=== PATIENT | female | born 1990 | race Caucasian/White ===

== ENCOUNTER → 2020-11-08 09:19 | Outpatient (CLI) | payer OTHER, SELFPAY ==
--- NOTE | 2020-11-08 09:26 | RAD_ITS ---
STUDY: X-RAY - LUMBAR SPINE REASON FOR EXAM: Female, 30 years old. Back pain. TECHNIQUE: 2 view(s) of the lumbar spine were obtained. COMPARISON: None FINDINGS: Normal lumbar lordosis. There is no substantial scoliosis. There is a normal alignment of the vertebrae. Normal vertebral bodies and endplates. Minimal intervertebral disc space narrowing at T11-T12 and T12-L1 with small osteophytes. The soft tissue structures are unremarkable. RAD/Lumbar Spine 2 or 3 Views IMPRESSION: Mild lower thoracic and upper lumbar spondylosis. Electronically Signed: Sravan Corcoran MD at 12:50 EDT , Service support ,
--- NOTE | 2020-11-08 09:26 | RAD_ITS ---
STUDY: X-RAY - THORACIC SPINE REASON FOR EXAM: Female, 30 years old. Back pain. TECHNIQUE: 2 view(s) of the thoracic spine were obtained. COMPARISON: None. FINDINGS: Normal kyphosis of the thoracic spine. There is no substantial scoliosis. Normal thoracic vertebrae and endplates. Disc degeneration in the lower thoracic and upper lumbar spine with small osteophytes. The soft tissue structures are unremarkable. RAD/Thoracic Spine 2 Views IMPRESSION: Minimal lower thoracic and upper lumbar spondylosis. Electronically Signed: Sravan Corcoran MD at 12:49 EDT , Service support ,
--- NOTE | 2020-11-08 09:40 | RAD_ITS ---
STUDY: X-RAY - SACRUM/COCCYX REASON FOR EXAM: Female, 30 years old. Back pain. TECHNIQUE: 3 view(s) of the sacrum and coccyx were obtained. COMPARISON: None. FINDINGS: Normal bilateral sacroiliac joints. Normal visualized sacral ala and fused sacral bodies. Normal sacrococcygeal junction with a normal angulation. Normal coccygeal segments. The presacral soft tissue structures are unremarkable. RAD/Sacrum-Coccyx min 2 Views IMPRESSION: No abnormality of the visualized osseous structures. Electronically Signed: Sravan Corcoran MD at 12:50 EDT , Service support ,
== END ==
LOC: RAD 09:24
PROVIDERS: Referring Provider Anesthesiology Pain Medicine; Visit Provider Anesthesiology Pain Medicine
DX: M54.9 Dorsalgia, unspecified (principal)
CPT/HCPCS: 72070; 72100; 72220

== ENCOUNTER → 2022-02-06 | Outpatient (CLI) | payer OTHER, SELFPAY ==
[2022-02-06 17:25] LABS: Amphetamine Urine VISTA NEGATIVE (<1000 ng/mL); Barbiturate Urine VISTA NEGATIVE (< 200 ng/mL); Benzodiazepine Urine VISTA POSITIVE (< 200 ng/mL); Cocaine Urine VISTA NEGATIVE (< 300 ng/mL); Ecstacy Urine VISTA NEGATIVE (< 500 ng/mL); Methadone Urine VISTA NEGATIVE (< 300 ng/mL); PCP Urine VISTA NEGATIVE (< 25 ng/mL); THC Urine VISTA NEGATIVE (< 50 ng/mL); Vista UDS pH Range 5
[2022-02-09 12:08] LABS: Chlamydia By Nucleic Acid AMP Negative (Negative)
[2022-02-09 15:12] LABS: Gonococcus By Nucleic Acid AMP Negative (Negative)
[2022-02-15 15:15] LABS: HPV APTIMA, High Risk Negative (Negative)
== END | disposition home or self-care (01) ==
PROVIDERS: Visit Provider Obstetrics & Gynecology
DX: O09.90 Supervision of high risk pregnancy, unspecified, unspecified trimester (principal)
CPT/HCPCS: 80307; 87086; 87088; 87491; 87591; 87624; 88175; G0145

== ENCOUNTER → 2022-02-08 | Outpatient (CLI) | payer OTHER, SELFPAY ==
[2022-02-08 11:50] LABS: Absolute Lymphocyte Count 2.69 X10^3/uL (0.83-4.51); Absolute Neutrophil Count 9.1 X10^3/uL (2.0-7.7); Basophil# 0.03 X10^3/uL; Basophil% 0.2 % (0-1); Eosinophil# 0.12 X10^3/uL; Eosinophils% 0.9 % (0-5); Hematocrit 36.5 % (37-47); Hemoglobin 12.4 g/dL (12.0-15.0); Lymphocyte # 2.69 X10^3/ul (0.83-4.51); Mean Corpuscular Hgb 28.7 pg (27.0-32.0); Mean Corpuscular Volume 84.5 fL (81-99); Mean Platelet Vol. 9.1 fl (6.2-12.0); Monocyte# 0.78 X10^3/uL; Monocyte% 6.1 % (0-10); NRBC Flagged by Analyzer 0 % (0-5); Neutrophil # 9.13 X10^3/uL (2.7-7.7); Neutrophil % 71.5 % (47-70); Platelet Count 334 K/mm3 (150-450); RBC Distribution Width CV 12.1 % (11.6-14.6); RBC Distribution Width SD 36.8 fl (35.1-43.9); Red Blood Count 4.32 M/mm3 (4.2-5.4); White Blood Count 12.8 K/mm3 (4.4-11.0)
[2022-02-08 11:55] LABS: NATERA MAILED SPECIMEN
[2022-02-08 12:18] LABS: Glucose Challenge Gest 1H 50g 75 mg/dL (70-140)
[2022-02-08 12:57] LABS: HIV - WCH Non-Reactive (Nonreactive); Hepatitis B Surface Antigen Non-Reactive (Nonreactive); Hepatitis C Antibody Non-Reactive (Nonreactive); Rubella IgG Reactive (Nonreactive); Syphilis Antibodies Non-reactive
[2022-02-15 14:29] LABS: Vitamin D 1,25-Dihydroxy 67.6 pg/mL (24.8-81.5)
== END | disposition home or self-care (01) ==
LOC: LAB 10:52
PROVIDERS: PCP Family Medicine; Visit Provider Obstetrics & Gynecology
DX: Z34.81 Encounter for supervision of other normal pregnancy, first trimester (principal)
CPT/HCPCS: 36415; 82652; 82950; 85025; 86703; 86762; 86780; 86803; 86850; 86900; 86901; 87340

== ENCOUNTER → 2022-05-15 | Outpatient (CLI) | payer OTHER, SELFPAY ==
--- NOTE | 2022-05-15 11:29 | US_ITS ---
STUDY: SECOND AND THIRD TRIMESTER OBSTETRICAL ULTRASOUND REASON FOR EXAM: Female, 31 years old Anatomy scan LMP: 11/29/2021. TECHNIQUE: Transabdominal and Transvaginal TECHNICAL QUALITY: Adequate. PRIOR ULTRASOUND: None. FINDINGS: There is a single intrauterine fetus. The fetus is in a cephalic presentation. There is demonstrated cardiac activity with a heart rate of 162 bpm. There is a normal amniotic fluid volume. The largest amniotic fluid pocket measures 4.3 cm. The amniotic fluid index (GERMAN) is within normal limits. The placenta is posterior in location and is not low lying. There are Grade 0 placental changes. The cervix measures 3.6 cm in length. The bilateral adnexal regions are normal. BIOMETRY: BPD: 5.4 cm: 22 weeks, 3 days HC: 21.22 cm: 23 weeks, 2 days AC: 19.67 cm: 24 weeks, 2 days FL: 4.15 cm: 23 weeks, 3 days CI: 71% FL/BPD: 77% FL/HC: FL/AC: 21% HC/AC: 1.08 age by current US: 23 weeks, 1 days. MYRON by current US: 09/10/2022. Estimated weight: 632 grams, +/- 95 grams, 39 %. Age by LMP: 23 weeks, 6 days. MYRON by LMP: 09/05/2022. ANATOMY: Gender: Male Cranium: Normal lateral ventricles. Normal choroid plexus. Normal cerebellum. Normal cisterna magna. Normal face, nose and lips. Chest: Normal 4-chamber heart. Abdomen/Pelvis: Normal diaphragm. Normal stomach. Normal abdominal wall. Normal cord insertion. Normal 3 vessel cord. Normal kidneys. Normal bladder. Spine: Normal cervical spine. Normal thoracic spine. Normal lumbar spine. Normal sacrum. Extremities: Normal bilateral upper extremities. Normal bilateral lower extremities. US/OB Anatomy Scan IMPRESSION: Single live uterine gestation with a mean gestational age of 23 weeks and 1 day. Electronically Signed: Sanjay Delgadillo MD at 15:08 EST ,
== END | disposition home or self-care (01) ==
LOC: OPUS 11:26
PROVIDERS: PCP Family Medicine; Referring Provider Obstetrics & Gynecology; Visit Provider Obstetrics & Gynecology
DX: O09.90 Supervision of high risk pregnancy, unspecified, unspecified trimester (principal)
CPT/HCPCS: 76805; 76817

== ENCOUNTER → 2022-07-22 | Outpatient (CLI) | payer OTHER, SELFPAY ==
[2022-07-22 13:35] LABS: Glucose Challenge Gest 1H 50g 154 mg/dL (70-140)
== END | disposition home or self-care (01) ==
LOC: LAB 12:17
PROVIDERS: PCP Family Medicine; Referring Provider Obstetrics & Gynecology; Visit Provider Obstetrics & Gynecology
DX: Z34.92 Encounter for supervision of normal pregnancy, unspecified, second trimester (principal); Z3A.23 23 weeks gestation of pregnancy
CPT/HCPCS: 36415; 82950

== ENCOUNTER 2022-08-19 13:50 | Outpatient (CLI) | payer OTHER, SELFPAY ==
[2022-08-19] VITALS (8 sets, daily range): PULSE 86–104; O2SAT 96–97; BMI 37.3
[2022-08-19 14:54] LABS: Absolute Lymphocyte Count 2.76 X10^3/uL (0.83-4.51); Absolute Neutrophil Count 9.6 X10^3/uL (2.0-7.7); Basophil# 0.04 X10^3/uL; Basophil% 0.3 % (0-1); Eosinophil# 0.09 X10^3/uL; Eosinophils% 0.7 % (0-5); Hematocrit 36.5 % (37-47); Hemoglobin 11.8 g/dL (12.0-15.0); Lymphocyte # 2.76 X10^3/ul (0.83-4.51); Lymphocyte % 20.5 % (19-41); Mean Corp Hgb Conc 32.3 g/dL (32-36); Mean Corpuscular Hgb 27.5 pg (27.0-32.0); Mean Corpuscular Volume 85.1 fL (81-99); Mean Platelet Vol. 10.5 fl (6.2-12.0); Monocyte# 0.84 X10^3/uL; Monocyte% 6.3 % (0-10); NRBC Flagged by Analyzer 0 % (0-5); Neutrophil # 9.58 X10^3/uL (2.7-7.7); Neutrophil % 71.2 % (47-70); Platelet Count 321 K/mm3 (150-450); RBC Distribution Width CV 12.9 % (11.6-14.6); RBC Distribution Width SD 39.5 fl (35.1-43.9); Red Blood Count 4.29 M/mm3 (4.2-5.4); White Blood Count 13.4 K/mm3 (4.4-11.0)
[2022-08-19 15:03] LABS: Fibrinogen 666 mg/dl (203-444)
--- NOTE | 2022-08-19 15:12 | US_ITS ---
INDICATION: FHR deceleration EXAMINATION: Ultrasound US Biophysical Profile W/O Nonst TECHNIQUE: Transabdominal pelvic ultrasound was performed. COMPARISON: None. LMP: Unknown. Beta-hCG: Unknown. Provided EGA: None. FINDINGS: INTRAUTERINE GESTATION(s): Single. HEART MOTION is 135 bpm. AMNIOTIC FLUID INDEX (GERMAN): 12.18 BIOPHYSICAL PROFILE (BPP): 11/12 -- Breathin at of 2 -- Movement: 2/2. -- Tone: 2/2. --GERMAN: 2/2. PRESENTATION: Cephalic PLACENTA: Posterior There is no placenta previa or abruption. Placenta grade 2 CERVIX: The cervix is closed. MATERNAL OVARIES: No adnexal masses. FREE FLUID: None. US/Biophysical Prof W/O Non Stres IMPRESSION: Single live intrauterine gestation. Biophysical profile score 6 out of 8. Cephalic presentation. Electronically Signed: Steve Dela Cruz MD, [place] at 17:47 EDT ,
[2022-08-19 15:26] LABS: Hemoglobin A1c 5.6 % (3.8-5.6)
[2022-08-19 16:52] LABS: Amphetamine Urine VISTA NEGATIVE (<1000 ng/mL); Barbiturate Urine VISTA NEGATIVE (< 200 ng/mL); Benzodiazepine Urine VISTA POSITIVE (< 200 ng/mL); Cocaine Urine VISTA NEGATIVE (< 300 ng/mL); Ecstacy Urine VISTA NEGATIVE (< 500 ng/mL); Methadone Urine VISTA NEGATIVE (< 300 ng/mL); PCP Urine VISTA NEGATIVE (< 25 ng/mL); THC Urine VISTA NEGATIVE (< 50 ng/mL); Vista UDS pH Range 6
[2022-08-19 17:47] LABS: Syphilis Antibodies Non-reactive
--- NOTE | 2022-08-25 08:56 | OB.TRI.PN_ITS ---
Progress Notes Date of Service: 08/19/22 Progress Note: Patient presents for triage evaluation secondary to bradycardia in office FHT: 140 Moderate variability reactive no decelerations category I tracing [place]: irritatbility Contractions Assessment and plan: decel, all reassuring here on l and d no decels, bpp 8/10 Reactive NST, reassuring maternal and status patient discharged to home to follow-up as scheduled. See problem list details for additional plan information. Laboratory Studies: Laboratory Tests 08/19/22 08/19/22 08/19/22 Range/Units 15:15 14:20 14:20 WBC (4.4-11.0) K/mm3 RBC (4.2-5.4) M/mm3 Hgb (12.0-15.0) g/dL Hct (37-47) % MCV (81-99) fL MCH (27.0-32.0) pg MCHC (32-36) g/dL RDW Std Deviation (35.1-43.9) fl RDW Coeff of Blade (11.6-14.6) % Plt Count (150-450) K/mm3 MPV (6.2-12.0) fl Immature Gran % (Auto) (0.0-0.9) % Neut % (Auto) (47-70) % Lymph % (Auto) (19-41) % [place] % (Auto) (0-10) % Eos % (Auto) (0-5) % Baso % (Auto) (0-1) % Absolute Neuts (auto) (2.0-7.7) X10^3/uL Absolute Lymphs (auto) (0.83-4.51) X10^3/uL Nucleated RBC % (0-5) % Fibrinogen (203-444) mg/dl Hemoglobin A1c (3.8-5.6) % Urine Opiates Screen NEGATIVE (< 300 ng/mL) Urine Methadone Screen NEGATIVE (< 300 ng/mL) Ur Barbiturates Screen NEGATIVE (< 200 ng/mL) Ur Phencyclidine Scrn NEGATIVE (< 25 ng/mL) Ur Amphetamines Screen NEGATIVE (<1000 ng/mL) MDMA (Ecstasy) Screen NEGATIVE (< 500 ng/mL) U Benzodiazepines Scrn POSITIVE H (< 200 ng/mL) Urine Cocaine Screen NEGATIVE (< 300 ng/mL) U Cannabinoids Screen NEGATIVE (< 50 ng/mL) Ur Drug Screen Comment Syphilis Total Ab Non-reactive Blood Type A NEGATIVE Antibody Screen NEGATIVE 08/19/22 08/19/22 08/19/22 Range/Units 14:20 14:20 14:20 WBC 13.4 H (4.4-11.0) K/mm3 RBC 4.29 (4.2-5.4) M/mm3 Hgb 11.8 L (12.0-15.0) g/dL Hct 36.5 L (37-47) % MCV 85.1 (81-99) fL MCH 27.5 (27.0-32.0) pg MCHC 32.3 (32-36) g/dL RDW Std Deviation 39.5 (35.1-43.9) fl RDW Coeff of Blade 12.9 (11.6-14.6) % Plt Count 321 (150-450) K/mm3 MPV 10.5 (6.2-12.0) fl Immature Gran % (Auto) 1.000 H (0.0-0.9) % Neut % (Auto) 71.2 H (47-70) % Lymph % (Auto) 20.5 (19-41) % [place] % (Auto) 6.3 (0-10) % Eos % (Auto) 0.7 (0-5) % Baso % (Auto) 0.3 (0-1) % Absolute Neuts (auto) 9.6 H (2.0-7.7) X10^3/uL Absolute Lymphs (auto) 2.76 (0.83-4.51) X10^3/uL Nucleated RBC % 0 (0-5) % Fibrinogen 666 H (203-444) mg/dl Hemoglobin A1c 5.6 (3.8-5.6) % Urine Opiates Screen (< 300 ng/mL) Urine Methadone Screen (< 300 ng/mL) Ur Barbiturates Screen (< 200 ng/mL) Ur Phencyclidine Scrn (< 25 ng/mL) Ur Amphetamines Screen (<1000 ng/mL) MDMA (Ecstasy) Screen (< 500 ng/mL) U Benzodiazepines Scrn (< 200 ng/mL) Urine Cocaine Screen (< 300 ng/mL) U Cannabinoids Screen (< 50 ng/mL) Ur Drug Screen Comment Syphilis Total Ab Blood Type Antibody Screen Charges/Coding Procedures Urinary/Genital 52xxx-59xxx: 28651-88 non-stress test Interp
== END 2022-08-19 17:50 | disposition home or self-care (01) ==
LOC: WPOUT 13:58 → WP 14:27
PROVIDERS: Registered Nurse; PCP Family Medicine; Referring Provider Obstetrics & Gynecology; Visit Provider Obstetrics & Gynecology
DX: O36.8390 Maternal care for abnormalities of the fetal heart rate or rhythm, unspecified trimester, not applicable or unspecified (principal); Z3A.00 Weeks of gestation of pregnancy not specified
CPT/HCPCS: 36415; 59025; 59050; 76819; 80307; 83036; 85025; 85384; 86780; 86850; 86900; 86901; 87077; 87081; 87186; 99221; G0378

== ENCOUNTER 2022-09-04 13:10 | Outpatient (CLI) | payer OTHER, SELFPAY ==
[2022-09-04 13:25] VITALS: TEMP 36.8
[2022-09-04 13:41] VITALS: BMI 37.6
[2022-09-04 14:10] VITALS: BP 115/78; PULSE 93
[2022-09-04 14:36] LABS: ROM Internal Control Test YES-OK TO RESULT pt. (Internal QC); ROM Patient Test Negative (Negative); Record Kit Lot#, ROM+ K1374
--- NOTE | 2022-09-04 21:58 | OB.TRI.HP_ITS ---
HPI - General General Date of Admission: 09/04/22 HPI Narrative MAHAMED OTERO, is a 32 y/o @39 weeks 6 days who presents to L&D with contractions. She was unsure if she had some leaking fluid, no vaginal bleeding, or dec fm. [facility] Medical History (Updated 09/21/22 @ 08:[address] Joanne Recio, DO) Bipolar 1 disorder delivery delivered Depression Hx of trauma Home Medications meloxicam 7.5 mg tablet 7.5 mg PO DAILY back pain 01/29/22 [History Last Taken 09/05/22 06:00 7.5 mg] multivit-min no.71-iron fum 28 mg-folate no.1 1 mg-dha 300 mg capsule (PNV- Cel[place]) 1 cap PO DAILY 01/29/22 [History Last Taken 09/04/22 10:00 1 tab] lamotrigine 200 mg tablet 200 mg PO DAILY bipolar 08/19/22 [History Last Taken 09/05/22 06:00 200 mg] sertraline 100 mg tablet 200 mg PO DAILY depression 08/19/22 [History Last Taken 09/05/22 06:00 200 mg] blood sugar diagnostic (Blood Glucose Test strips) #50 ea 08/23/22 [Rx Last Taken Unknown] blood-glucose meter #1 ea 08/23/22 [Rx Last Taken Unknown] lancets #100 ea 08/23/22 [Rx Last Taken Unknown] Allergy/AdvReac Type Severity Reaction Status Date / Time No Known Allergies Allergy Verified 09/05/22 07:37 Family History Grandmother Cervical cancer, Onset Age: 92 maternal Breast cancer, Onset Age: 60 Paternal Surgical History Hx of colposcopy with cervical biopsy Social History adopted: No household members: spouse housing: house current occupational status: employed current occupation: warehouse current occupational exposures/hazards: Yes (heavy lifting ) pets and animals: Yes (not manage litterbox) pets and animals: cat(s) and dog(s) history of recent travel: No sexually active: Yes Smoking Status: Light Smoker (<10/day) quit status: not considering quitting alcohol intake: former details: Quit when found out was . substance use type: does not use well-balanced diet: about half the time caffeine: Yes Type: coffee Number of servings: 1 eating out: 1-3 times/week during the past year weight has: remained stable what type of physical activity do you participate in: none rick/nondenominational: Restorationism seatbelt use: always do you feel safe at home: Yes additional social history: - Temo Otero- [employer] History 2 Elective abortions Hx Para 1 Spontaneous abortions 1 Hx # Term Pregnancies Ectopic pregnancies Hx # Pregnancies Multiple births # of living children 1 Past Pregnancies Del. Date Name GA/Weeks Outcome Route Bth Weight Infant Gen Labor Lgth Anesthesia Del Locatn Provider FOB Unknown 2019 miscarriage @6 weeks 09/13/22 37 live - full term [facility] Delivery Date: 09/13/22 Last Updated by: Julia Chou CS for NRFHT ROS Constitutional Constitutional: Reports systems reviewed and no addt'l complaints, except as documented Gastrointestinal Gastrointestinal: Denies bloating, constipation, cramping, diarrhea, nausea or vomiting Genitourinary Genitourinary: Reports other Details: Denies vaginal odor, vaginal bleeding, or vaginal discharge ; Denies difficulty urinating or flank pain NST FHR Rate Baby A Baseline: 140 Variability:: Moderate Accelerations:: 15 x 15 Decelerations:: None NST Reactive:: Yes FHR Category:: Category I Assessment & Plan (1) False labor after 37 completed weeks of gestation: PLAN: Rom plus was negative for rupture of membranes contractions are palpating mild and there was no cervical dilaton after monitoring for 120 minutes plan to dc patient to home, keep scheduled office visit Charges/Coding Multi Select Codes Urinary/Genital Urinary/Genital CPT Codes: 27947-15 non-stress test Interp
== END 2022-09-04 15:40 | disposition home or self-care (01) ==
LOC: WPOUT 13:18 → WP 13:19
PROVIDERS: PCP Family Medicine; Referring Provider Obstetrics & Gynecology; Visit Provider Obstetrics & Gynecology
DX: O99.343 Other mental disorders complicating pregnancy, third trimester (principal); F31.9 Bipolar disorder, unspecified; O99.333 Smoking (tobacco) complicating pregnancy, third trimester; O47.1 False labor at or after 37 completed weeks of gestation; F17.210 Nicotine dependence, cigarettes, uncomplicated; Z3A.37 37 weeks gestation of pregnancy; Z79.899 Other long term (current) drug therapy
CPT/HCPCS: 59025; 59050; 84112; 99221; G0378

== ENCOUNTER 2022-09-05 06:48 | Inpatient (IN) | payer OTHER, SELFPAY ==
[2022-09-05] VITALS (50 sets, daily range): BP systolic 94–136; BP diastolic 55–84; PULSE 68–122; RESP 14–19; TEMP 36.1–36.5; O2SAT 87–100; BMI 38.2
--- NOTE | 2022-09-05 | PLAC_PTH ---
PATIENT: ZITA OTERO LOC: WP U#:[id number] AGE/SX: 32/F ROOM: WP010 RE09/05/[address]: Dr. Zita Blanc MD : 1990 BED: 1 DIS: 09/06/2022 SPEC #: [id number] RECD: 09/05/22 14:54 STATUS: ROXI LEE #: [id number] AARON: 09/05/22 00:[address]: Zita Blanc DEPT: SURGICAL PATHOLOGY RECD BY: Howard Loredo ENTERED: 09/06/22 08:58 SP TYPE: PLACENTA OTHR DR: Dr. Justin Mccoy MD Tissues: Placenta, NOS Procedures: Surgery Specimen Level V HEADER OPERATION: Primary section PRE-OP DIAGNOSIS: Non-reassuring strip TISSUE SUBMITTED: Placenta MICROSCOPIC DIAGNOSIS Francois placenta (615 gm): Umbilical cord ? trivascular with no evidence of inflammation. Placental membranes - No pathologic change. Placental disc ? focal remote infarct with associated increased intraparenchymal fibrin plaques and microcalcifications. AM:rebecca 09/10/2022 MICROSCOPIC DESCRIPTION Slides are reviewed. GROSS DESCRIPTION SPECIMEN: PLACENTA / CLINICAL INFORMATION: A. Weight: 3.435 kg B. Gestational Age: 40 weeks C. Sex: Male PLACENTAL WEIGHT (POST FIXATION): 615 gm PLACENTAL DIMENSIONS: 23.0 x 21.0 x 3.0 cm PLACENTAL SHAPE: Usual ovoid PLACENTAL WEIGHT FOR GESTATIONAL AGE: Over 99th percentile MEMBRANES - Present A. Insertion: Marginal B. Site of rupture from edge: At edge of placental disc C. Color of membrane: Bustos-greenish consistent with meconium staining. D. Abnormalities: None UMBILICAL CORD - Present A. Color: Bustos-darling B. Insertion: Central C. Length: 32.0 cm D. Diameter: 1.2 cm E. Number of vessels: Three F. Abnormalities: None PLACENTAL DISC - Present A. Color of surface: Bustos-darling B. surface abnormalities: None C. Maternal cotyledons: Intact with minimal tears D. Attached retro placental clot: No clot E. Cut surface: Dark red and spongy F. Lesions: Sections reveal a bustos, indurated lesion measuring 0.6 cm in greatest dimension. G. Separate clot: Absent SECTIONS SUBMITTED: 1. Membrane roll 2. Cord, maternal end 3. Cord, end 4. Placental disc, and maternal surfaces 5. Placental disc, and maternal surfaces 6. Placental disc, and maternal surfaces, lesion SJ:rebecca 09/09/2022 TC:5 CPT: 46533
[2022-09-05] MEDS: Lactated Ringers 1,000 ML 50 ML IV (08:05)
[2022-09-05 08:18] LABS: Absolute Lymphocyte Count 2.44 X10^3/uL (0.83-4.51); Absolute Neutrophil Count 11.7 X10^3/uL (2.0-7.7); Basophil# 0.05 X10^3/uL; Basophil% 0.3 % (0-1); Eosinophil# 0.16 X10^3/uL; Hematocrit 37.1 % (37-47); Hemoglobin 12.1 g/dL (12.0-15.0); Lymphocyte # 2.44 X10^3/ul (0.83-4.51); Lymphocyte % 15.5 % (19-41); Mean Corp Hgb Conc 32.6 g/dL (32-36); Mean Corpuscular Hgb 27.6 pg (27.0-32.0); Mean Corpuscular Volume 84.5 fL (81-99); Mean Platelet Vol. 10.6 fl (6.2-12.0); Monocyte# 1.29 X10^3/uL; Monocyte% 8.2 % (0-10); NRBC Flagged by Analyzer 0 % (0-5); Neutrophil # 11.72 X10^3/uL (2.7-7.7); Neutrophil % 74.2 % (47-70); Platelet Count 292 K/mm3 (150-450); RBC Distribution Width CV 13.3 % (11.6-14.6); RBC Distribution Width SD 41.1 fl (35.1-43.9); Red Blood Count 4.39 M/mm3 (4.2-5.4); White Blood Count 15.8 K/mm3 (4.4-11.0)
[2022-09-05] MEDS: 0.9% Normal Saline Single 100 ML IV.SOLN. INTRA-UTER (08:29)
[2022-09-05 09:15] LABS: Syphilis Antibodies Non-reactive
[2022-09-05] MEDS: LACTATED RINGERS 500 ML 999 ML IV (09:32)
[2022-09-05] MEDS: Oxytocin 15 Units/NS 250ml 15 UNITS/250 ML IV.SOLN 2 UNITS IV (10:43)
[2022-09-05] MEDS: fentaNYL-bupivacaine (epidural) 100 ML BAG EPIDURAL (10:45)
[2022-09-05] MEDS: Lactated Ringers 1,000 ML 999 ML IV ×2 (10:56→12:26)
[2022-09-05] MEDS: Cefazolin 2 GM in 0.9% Normal Saline 100 ML IV (13:27)
[2022-09-05 13:40] LABS: Amphetamine Urine VISTA NEGATIVE (<1000 ng/mL); Barbiturate Urine VISTA NEGATIVE (< 200 ng/mL); Benzodiazepine Urine VISTA NEGATIVE (< 200 ng/mL); Cocaine Urine VISTA NEGATIVE (< 300 ng/mL); Ecstacy Urine VISTA NEGATIVE (< 500 ng/mL); Methadone Urine VISTA NEGATIVE (< 300 ng/mL); PCP Urine VISTA NEGATIVE (< 25 ng/mL); THC Urine VISTA NEGATIVE (< 50 ng/mL); Vista UDS pH Range 6
[2022-09-05] MEDS: Lactated Ringers 1,000 ML 100 ML IV (14:00)
[2022-09-05] MEDS: Oxytocin 15 Units/NS 250ml 15 UNITS/250 ML IV.SOLN 83 UNITS IV (14:00)
[2022-09-05 14:54] LABS: Pathology Specimen OB SEE PATHOLOGY REPORT
[2022-09-05] MEDS: Ketorolac 30 MG/ML Syringe IV (15:43)
[2022-09-05] MEDS: Acetaminophen 500 MG Tablet 1000 MG PO ×2 (17:05→22:41)
--- NOTE | 2022-09-05 20:57 | HP.PCM.OB_ITS ---
HPI - General General Date of Admission: 09/05/22 HPI Narrative MAHAMED OTERO, is a 32 F who presents for IOL secondary to term and limited visits. upon admission patient initially had a spontaneous deceleration into the 110s with recovery into the 150-160s. she denies any bleeding or abnormal discharge, no regular ctx. Maternal Data Information [facility] Calculator Estimated Delivery Date Method Current WG Current Estimate 09/05/22 LMP (Uncertain) 40w 1d Other Estimates 09/04/22 Ultrasound #1 40w 2d PFSH PFSH Medical History Bipolar 1 disorder Depression Hx of trauma Home Medications meloxicam 7.5 mg tablet 7.5 mg PO DAILY back pain 01/29/22 [History Last Taken 09/05/22 06:00 7.5 mg] multivit-min no.71-iron fum 28 mg-folate no.1 1 mg-dha 300 mg capsule (PNV- [place]ger) 1 cap PO DAILY 01/29/22 [History Last Taken 09/04/22 10:00 1 tab] lamotrigine 200 mg tablet 200 mg PO DAILY bipolar 08/19/22 [History Last Taken 09/05/22 06:00 200 mg] sertraline 100 mg tablet 200 mg PO DAILY depression 08/19/22 [History Last Taken 09/05/22 06:00 200 mg] blood sugar diagnostic (Blood Glucose Test strips) #50 ea 08/23/22 [Rx Last Taken Unknown] blood-glucose meter #1 ea 08/23/22 [Rx Last Taken Unknown] lancets #100 ea 08/23/22 [Rx Last Taken Unknown] Allergy/AdvReac Type Severity Reaction Status Date / Time No Known Allergies Allergy Verified 09/05/22 07:37 Family History Grandmother Cervical cancer, Onset Age: 92 maternal Breast cancer, Onset Age: 60 Paternal Surgical History Hx of colposcopy with cervical biopsy Social History adopted: No household members: spouse housing: house current occupational status: employed current occupation: warehouse current occupational exposures/hazards: Yes (heavy lifting ) pets and animals: Yes (not manage litterbox) pets and animals: cat(s) and dog(s) history of recent travel: No sexually active: Yes Smoking Status: Light Smoker (<10/day) quit status: not considering quitting alcohol intake: former details: Quit when found out was . substance use type: does not use well-balanced diet: about half the time caffeine: Yes Type: coffee Number of servings: 1 eating out: 1-3 times/week during the past year weight has: remained stable what type of physical activity do you participate in: none rick/jainism: Cheondoism seatbelt use: always do you feel safe at home: Yes additional social history: - Temo Otero- [employer] History 2 Elective abortions Hx Para 0 Spontaneous abortions 1 Hx # Term Pregnancies Ectopic pregnancies Hx # Pregnancies Multiple births # of living children Past Pregnancies Del. Date Name GA/Weeks Outcome Route Bth Weight Gen Labor Lgth Anesthesia Del Locatn Provider FOB Unknown 2019 miscarriage @6 weeks Visit Details Expected Delivery Route/Plan Labor Preferences- CB/BF classes: [] labor support person: [] labor intervention preferences: [] pain management options preferred: [] cut cord/dad catch: [] : [] PP control planned: [] discussed possible routes of delivery and associated risks: [] special requests: [] Plans Covid status: [] Flu vaccine: [] Tdap vaccine: [] Rhogam: [] LARC form signed: obtained Problem list reviewed and updated with the most current plan of care details and appropriate orders placed. Relevant counseling for the gestational age provided. Continue routine care and follow up unless otherwise noted in visit notes/problem list details OB Flowsheet Initial Weight: Not Recorded Date -?-?-?-?-?-?-?-?-?-?-?-?- EGA Weight BP Urine Prot -?-?-?-?-?-?-?-?-?-?-?-?- Glucose FHR FuHt Pres Dilation -?-?-?-?-?-?-?-?-?-?-?-?- Effaced St Visit Note 02/06/22 -?-?-?-?-?-?-?-?-?-?-?-?- 9w 6d 180 lb 4 oz 122/88 -?-?-?-?-?-?-?-?-?-?-?-?- 179 -?-?-?-?-?-?-?-?-?-?-?-?- JV- single IUP p resent. JV- single IUP present. CRL consistent with LMP 03/15/22 -?-?-?-?-?-?-?-?-?-?-?-?- 15w 1d 184 lb 127/76 -?-?-?-?-?-?-?-?-?-?-?-?- 170 -?-?-?-?-?-?-?-?-?-?-?-?- SM- no vb lof mahoney ving increased mood ysmptoms- refer to dr richardson 05/10/22 -?-?-?-?-?-?-?-?-?-?-?-?- 23w 1d 192 lb 122/64 Negative -?-?-?-?-?-?-?-?-?-?-?-?- Negative 150 -?-?-?-?-?-?-?-?-?-?-?-?- SM- no vb lof no regular ctx 07/22/22 -?-?-?-?-?-?-?-?-?-?-?-?- 33w 4d 198 lb 4 oz 105/74 Trac e -?-?-?-?-?-?-?-?-?-?-?-?- Negative 155 33 Cephalic -?-?-?-?-?-?-?-?-?-?-?-?- JV- pt has been monitoring heart tones at home and having a hard time coming to visits due to her anxiety and depression but is back on track now with her psychiatrist and medication. 3rd trimester labs ordered today 08/05/22 -?-?-?-?-?-?-?-?-?-?-?-?- 35w 4d 201 lb 2 oz 127/84 Trac e -?-?-?-?-?-?-?-?-?-?-?-?- Negative 157 35 -?-?-?-?-?-?-?-?-?-?-?-?- MH-No VB, lof. G ood FM. 08/19/22 -?-?-?-?-?-?--?-?-?-?-?-?- 37w 4d 204 lb 122/79 Trace -?-?-?-?-?-?-?-?-?-?-?-?- Negative 135 37 -?-?-?-?-?-?-?-?-?-?-?-?- LC- no lof/vb/cr amping. good fm. audible decel to 80sx60 seconds, sent to for extended monitoring, GERMAN check. will obtain HbgA1c as pt unable to tolerate 3 hour GCT. will obtain 4x/day glucose testing if sent home from today. 09/03/22 -?-?-?-?-?-?-?-?-?-?-?-?- 39w 5d 205 lb 126/77 -?-?-?-?-?-?-?-?-?-?-?-?- 140 40 Cephalic 2 -?-?-?-?-?-?-?-?-?-?-?-?- 60 -2 KW-+FM, no vb/lof/ regular ctx. not doing glucose levels-membrane sweep. KW-+FM, no vb/lof/ regular c tx. not doing glucose levels-membrane sweep. IOL set up for 40 weeks 09/05/22 -?-?-?-?-?-?-?-?-?-?-?-?- 40w 0d 209 lb 3.499 oz 134/ 84 136/74 107/70 130/74 124/81 123/62 123/77 117/73 129/73 101/64 116/62 130/63 126/79 125/67 120/73 128/74 110/65 110/65 135/79 129/82 123/56 121/77 120/74 125/77 119/72 94/55 106/64 103/62 -?-?-?-?-?-?-?-?-?-?-?-?- -?-?-?-?-?-?-?-?-?-?-?-?- NST FHR Rate Baby A Baseline: 140 Variability:: Moderate Accelerations:: None Decelerations:: Variable NST Reactive:: Non-Reactive FHR Category:: Category II Uterine Activity:: no regular ROS Constitutional Constitutional: Reports systems reviewed and no addt'l complaints, except as documented ENT HEENT: Reports systems reviewed and no addt'l complaints, except as documented Cardiovascular Cardiovascular: Reports systems reviewed and no addt'l complaints, except as documented Respiratory/Chest Respiratory/Chest: Reports systems reviewed and no addt'l complaints, except as documented Gastrointestinal Gastrointestinal: Reports systems reviewed and no addt'l complaints, except as documented and nausea; Denies abdominal pain Genitourinary Genitourinary: Reports systems reviewed and no addt'l complaints, except as documented, contractions Details: present and frequency (regular ) and movement Details: present Musculoskeletal Musculoskeletal: Reports systems reviewed and no addt'l complaints, except as documented Integumentary Integumentary: Reports as per HPI Neurologic Neurologic: Reports systems reviewed and no addt'l complaints, except as documented Endocrine Endocrinology: Reports systems reviewed and no addt'l complaints, except as documented Vital Signs Vital Signs Vital Signs: 09/05/22 07:30 09/05/22 07:30 09/05/22 09:06 Temperature Temperature Source Pulse Rate 113 H Respiratory Rate Respiratory Depth Blood Pressure 134/84 H 136/74 H Blood Pressure Mean BP Systolic 134 136 BP Diastolic 84 74 Blood Pressure Source Blood Pressure Position Blood Pressure Location Baseline BP Pulse Ox Oxygen Delivery Method 09/05/22 09:06 09/05/22 09:48 09/05/22 09:48 Temperature 97.1 F L Temperature Source Temporal Pulse Rate 100 Respiratory Rate Respiratory Depth Blood Pressure Blood Pressure Mean BP Systolic BP Diastolic Blood Pressure Source Blood Pressure Position Blood Pressure Location Baseline BP Pulse Ox Oxygen Delivery Method 09/05/22 10:04 09/05/22 10:04 09/05/22 10:10 Temperature Temperature Source Pulse Rate 77 87 Respiratory Rate Respiratory Depth Blood Pressure 107/70 Blood Pressure Mean BP Systolic 107 BP Diastolic 70 Blood Pressure Source Blood Pressure Position Blood Pressure Location Baseline BP Pulse Ox Oxygen Delivery Method 09/05/22 10:10 09/05/22 10:13 09/05/22 10:13 Temperature Temperature Source Pulse Rate 86 Respiratory Rate Respiratory Depth Blood Pressure 130/74 H Blood Pressure Mean BP Systolic 130 BP Diastolic 74 Blood Pressure Source Blood Pressure Position Blood Pressure Location Baseline BP Pulse Ox 100 Oxygen Delivery Method 09/05/22 10:15 09/05/22 10:15 09/05/22 10:19 Temperature Temperature Source Pulse Rate 87 Respiratory Rate Respiratory Depth Blood Pressure 124/81 H Blood Pressure Mean BP Systolic 124 BP Diastolic 81 Blood Pressure Source Blood Pressure Position Blood Pressure Location Baseline BP Pulse Ox 100 Oxygen Delivery Method 09/05/22 10:19 09/05/22 10:20 09/05/22 10:20 Temperature Temperature Source Pulse Rate 96 89 Respiratory Rate Respiratory Depth Blood Pressure Blood Pressure Mean BP Systolic BP Diastolic Blood Pressure Source Blood Pressure Position Blood Pressure Location Baseline BP Pulse Ox 100 Oxygen Delivery Method 09/05/22 10:23 09/05/22 10:23 09/05/22 10:24 Temperature Temperature Source Pulse Rate 92 Respiratory Rate Respiratory Depth Blood Pressure 123/62 H Blood Pressure Mean BP Systolic 123 BP Diastolic 62 Blood Pressure Source Blood Pressure Position Blood Pressure Location Baseline BP Pulse Ox 87 Oxygen Delivery Method 09/05/22 10:24 09/05/22 10:25 09/05/22 10:25 Temperature Temperature Source Pulse Rate 98 91 Respiratory Rate Respiratory Depth Blood Pressure Blood Pressure Mean BP Systolic BP Diastolic Blood Pressure Source Blood Pressure Position Blood Pressure Location Baseline BP Pulse Ox 100 Oxygen Delivery Method 09/05/22 10:29 09/05/22 10:29 09/05/22 10:30 Temperature Temperature Source Pulse Rate 78 97 Respiratory Rate Respiratory Depth Blood Pressure 123/77 H Blood Pressure Mean BP Systolic 123 BP Diastolic 77 Blood Pressure Source Blood Pressure Position Blood Pressure Location Baseline BP Pulse Ox Oxygen Delivery Method 09/05/22 10:30 09/05/22 10:33 09/05/22 10:33 Temperature Temperature Source Pulse Rate 100 Respiratory Rate Respiratory Depth Blood Pressure 117/73 Blood Pressure Mean BP Systolic 117 BP Diastolic 73 Blood Pressure Source Blood Pressure Position Blood Pressure Location Baseline BP Pulse Ox 100 Oxygen Delivery Method 09/05/22 10:35 09/05/22 10:35 09/05/22 10:38 Temperature Temperature Source Pulse Rate 100 Respiratory Rate Respiratory Depth Blood Pressure 129/73 H Blood Pressure Mean BP Systolic 129 BP Diastolic 73 Blood Pressure Source Blood Pressure Position Blood Pressure Location Baseline BP Pulse Ox 100 Oxygen Delivery Method 09/05/22 10:38 09/05/22 10:40 09/05/22 10:40 Temperature Temperature Source Pulse Rate 107 H 122 H Respiratory Rate Respiratory Depth Blood Pressure Blood Pressure Mean BP Systolic BP Diastolic Blood Pressure Source Blood Pressure Position Blood Pressure Location Baseline BP Pulse Ox 99 Oxygen Delivery Method 09/05/22 10:43 09/05/22 10:43 09/05/22 10:45 Temperature Temperature Source Pulse Rate 100 89 Respiratory Rate Respiratory Depth Blood Pressure 101/64 Blood Pressure Mean BP Systolic 101 BP Diastolic 64 Blood Pressure Source Blood Pressure Position Blood Pressure Location Baseline BP Pulse Ox Oxygen Delivery Method 09/05/22 10:45 09/05/22 10:49 09/05/22 10:49 Temperature Temperature Source Pulse Rate 88 Respiratory Rate Respiratory Depth Blood Pressure 116/62 Blood Pressure Mean BP Systolic 116 BP Diastolic 62 Blood Pressure Source Blood Pressure Position Blood Pressure Location Baseline BP Pulse Ox 100 Oxygen Delivery Method 09/05/22 10:51 09/05/22 10:51 09/05/22 10:50 Temperature Temperature Source Pulse Rate 79 Respiratory Rate Respiratory Depth Blood Pressure 130/63 H Blood Pressure Mean BP Systolic 130 BP Diastolic 63 Blood Pressure Source Blood Pressure Position Blood Pressure Location Baseline BP Pulse Ox 100 Oxygen Delivery Method 09/05/22 10:53 09/05/22 10:53 09/05/22 10:55 Temperature Temperature Source Pulse Rate 86 85 Respiratory Rate Respiratory Depth Blood Pressure 126/79 H Blood Pressure Mean BP Systolic 126 BP Diastolic 79 Blood Pressure Source Blood Pressure Position Blood Pressure Location Baseline BP Pulse Ox Oxygen Delivery Method 09/05/22 10:55 09/05/22 10:59 09/05/22 10:59 Temperature Temperature Source Pulse Rate 81 Respiratory Rate Respiratory Depth Blood Pressure 125/67 H Blood Pressure Mean BP Systolic 125 BP Diastolic 67 Blood Pressure Source Blood Pressure Position Blood Pressure Location Baseline BP Pulse Ox 100 Oxygen Delivery Method 09/05/22 11:00 09/05/22 11:00 09/05/22 11:01 Temperature Temperature Source Pulse Rate 92 Respiratory Rate Respiratory Depth Blood Pressure 120/73 Blood Pressure Mean BP Systolic 120 BP Diastolic 73 Blood Pressure Source Blood Pressure Position Blood Pressure Location Baseline BP Pulse Ox 100 Oxygen Delivery Method 09/05/22 11:02 09/05/22 11:02 09/05/22 11:05 Temperature Temperature Source Pulse Rate 96 98 Respiratory Rate Respiratory Depth Blood Pressure Blood Pressure Mean BP Systolic BP Diastolic Blood Pressure Source Blood Pressure Position Blood Pressure Location Baseline BP Pulse Ox 87 Oxygen Delivery Method 09/05/22 11:05 09/05/22 11:10 09/05/22 11:10 Temperature Temperature Source Pulse Rate 86 Respiratory Rate Respiratory Depth Blood Pressure Blood Pressure Mean BP Systolic BP Diastolic Blood Pressure Source Blood Pressure Position Blood Pressure Location Baseline BP Pulse Ox 100 100 Oxygen Delivery Method 09/05/22 11:15 09/05/22 11:15 09/05/22 11:16 Temperature Temperature Source Pulse Rate 93 Respiratory Rate Respiratory Depth Blood Pressure 128/74 H Blood Pressure Mean BP Systolic 128 BP Diastolic 74 Blood Pressure Source Blood Pressure Position Blood Pressure Location Baseline BP Pulse Ox 100 Oxygen Delivery Method 09/05/22 11:16 09/05/22 11:20 09/05/22 11:20 Temperature Temperature Source Pulse Rate 80 93 Respiratory Rate Respiratory Depth Blood Pressure Blood Pressure Mean BP Systolic BP Diastolic Blood Pressure Source Blood Pressure Position Blood Pressure Location Baseline BP Pulse Ox 100 Oxygen Delivery Method 09/05/22 11:25 09/05/22 11:25 09/05/22 12:20 Temperature Temperature Source Pulse Rate 80 Respiratory Rate Respiratory Depth Blood Pressure 110/65 Blood Pressure Mean BP Systolic 110 BP Diastolic 65 Blood Pressure Source Blood Pressure Position Blood Pressure Location Baseline BP Pulse Ox 99 Oxygen Delivery Method 09/05/22 12:20 09/05/22 12:23 09/05/22 12:23 Temperature Temperature Source Pulse Rate 72 92 Respiratory Rate Respiratory Depth Blood Pressure Blood Pressure Mean BP Systolic BP Diastolic Blood Pressure Source Blood Pressure Position Blood Pressure Location Baseline BP Pulse Ox 90 Oxygen Delivery Method 09/05/22 12:23 09/05/22 12:23 09/05/22 12:24 Temperature Temperature Source Temporal Pulse Rate 79 Respiratory Rate Respiratory Depth Blood Pressure Blood Pressure Mean BP Systolic BP Diastolic Blood Pressure Source Blood Pressure Position Blood Pressure Location Baseline BP Pulse Ox 100 Oxygen Delivery Method 09/05/22 12:24 09/05/22 12:40 09/05/22 12:40 Temperature 97.3 F L Temperature Source Pulse Rate 87 Respiratory Rate Respiratory Depth Blood Pressure Blood Pressure Mean BP Systolic BP Diastolic Blood Pressure Source Blood Pressure Position Blood Pressure Location Baseline BP Pulse Ox 100 Oxygen Delivery Method 09/05/22 13:55 09/05/22 14:10 09/05/22 14:25 Temperature 97.7 F L Temperature Source Temporal Pulse Rate 88 80 88 Respiratory Rate 18 16 16 Respiratory Depth Blood Pressure 135/79 H 129/82 H 123/56 H Blood Pressure Mean 97 97 78 BP Systolic BP Diastolic Blood Pressure Source Monitor Monitor Monitor Blood Pressure Position Semi-Fowlers Semi-Fowlers Semi-Fowlers Blood Pressure Location Right Arm Right Arm Right Arm Baseline BP 110/65 110/65 110/65 Pulse Ox 99 99 99 Oxygen Delivery Method Room Air Room Air Room Air 09/05/22 15:40 09/05/22 16:00 09/05/22 12:45 Temperature 96.9 F L 97.3 F L Temperature Source Temporal Temporal Pulse Rate 71 89 79 Respiratory Rate 14 19 H 18 Respiratory Depth Blood Pressure 121/77 H 120/74 110/65 Blood Pressure Mean 91 89 80 BP Systolic BP Diastolic Blood Pressure Source Monitor Monitor Monitor Blood Pressure Position Semi-Fowlers Semi-Fowlers Semi-Fowlers Blood Pressure Location Right Arm Right Arm Baseline BP 110/65 110/65 Pulse Ox 100 100 100 Oxygen Delivery Method Room Air Room Air Room Air 09/05/22 17:00 09/05/22 18:00 09/05/22 20:15 Temperature 97.2 F L Temperature Source Temporal Pulse Rate 73 80 68 Respiratory Rate 18 18 15 Respiratory Depth Normal Normal Normal Blood Pressure 125/77 H 119/72 94/55 L Blood Pressure Mean 93 87 68 BP Systolic BP Diastolic Blood Pressure Source Monitor Monitor Monitor Blood Pressure Position Semi-Fowlers Semi-Fowlers Supine Blood Pressure Location Left Arm Left Arm Right Arm Baseline BP Pulse Ox 98 98 97 Oxygen Delivery Method Room Air Room Air Room Air Weight Weight: 209 lb 3.499 oz Body Mass Index (BMI) 38.2 Physical Exam Const alert, oriented x3 and healthy appearing Constitutional Narrative: uncomfortable with contractions HEENT normocephalic and moist oral mucous membranes Head and Scalp: atraumatic Neck full ROM, no lymphadenopathy, supple and thyroid normal General: trachea midline Thyroid: thyroid normal Lymph Lymphatic: no lymphadenopathy noted Chest inspection of chest normal Resp normal respiratory effort Cardio regular rate GI normal to inspection, nondistended, normoactive bowel sounds, soft to palpation and non-tender Inspection: gravid external exam normal Bimanual Exam - Vag & Uterus: uterus non-tender Manual OB Exam: estimated gestational size appropriate, presentation cephalic, dilated, effaced and station Extremity normal to inspection General Extremity: Negative for edema Skin no rashes or lesions noted Neuro deep tendon reflexes 2+ bilaterally Motor Exam: strength 5/5 throughout and clonus absent Psych mental status grossly normal Labs Labs Labs: Blood Type A NEGATIVE Antibody Screen NEGATIVE Hct 37.1 % (37-47) Hgb 12.1 g/dL (12.0-15.0) Pap Smear Negative Obstetrics US Syphilis Total Ab Non-reactive Rubella IgG Antibody Reactive (Nonreactive) Hep Bs Antigen Non-Reactive (Nonreactive) Chlamydia DNA ([facility]) Negative (Negative) Neisseria gonorrhoeae DNA ([place]) Negative (Negative) HIV 1&2 Antibody Non-Reactive (Nonreactive) Glucose 1 Hr 50 gm 154 mg/dL (70-140) H Rhogam given: Yes Assessment & Plan (1) Impaired glucose in , antepartum: COMMENT: failed 1 hour, unable to be NPO for 4 hours due to psych meds. will obtain 4xday glucose testing growth scan ordered 08/19 (2) Depression: COMMENT: sertraline, dr richardson referral (3) Bipolar 1 disorder, mixed, severe: (4) History of attempted suicide: COMMENT: X2 @ 17 & 24 yo (5) : QUALIFIERS: Weeks of gestation: 37 weeks Qualified Code(s): Z3A.37 - 37 weeks gestation of COMMENT: GBS positive, NIPT low risk, discussed carrier testing, nl anatomy, 1hr [id number], 3hr gtt ordered, (6) Supervision of high risk , antepartum: COMMENT: PRR , MYRON 09/04/22,boy, Temo Otero (7) History of alcoholism: COMMENT: stopped drinking with +UPT (8) Tobacco abuse: COMMENT: weaned to 5 cigarettes per day (9) Vitamin D deficiency: PLAN: Plan Patient presents IOL, plan management for with robb bulb, pitocin when able. Pain management: plans epidural. GBS positive plan PCN. Management of any complications: limited care due to patient missing visits. I have [facility] and made any clinically relevant updates.
--- NOTE | 2022-09-05 20:59 | OP.PCM_ITS ---
Assessment & Plan (1) Impaired glucose in , antepartum: COMMENT: failed 1 hour, unable to be NPO for 4 hours due to psych meds. will obtain 4xday glucose testing growth scan ordered 08/19 (2) Bipolar 1 disorder, mixed, severe: (3) Depression: COMMENT: dr debra sinclair referral (4) History of attempted suicide: COMMENT: X2 @ 17 & 24 yo (5) : QUALIFIERS: Weeks of gestation: 37 weeks Qualified Code(s): Z3A.37 - 37 weeks gestation of COMMENT: GBS positive, NIPT low risk, discussed carrier testing, nl anatomy, 1hr GTT-154, 3hr gtt ordered, (6) Supervision of high risk , antepartum: COMMENT: PRR , MYRON 09/04/22,boy, Temo Melo (7) History of alcoholism: COMMENT: stopped drinking with +UPT (8) Tobacco abuse: COMMENT: weaned to 5 cigarettes per day (9) Vitamin D deficiency: Maternal Data Information MYRON Calculator Estimated Delivery Date Method Current WG Current Estimate 09/05/22 LMP (Uncertain) 40w 1d Other Estimates 09/04/22 Ultrasound #1 40w 2d Final MYRON Source: LMP Gestational age: 39 Details Operative Information Date of Procedure: 09/05/22 Pre-Operative Diagnosis: see a/p diagnoses Post-Operative Diagnosis: same Indications Narrative: surgeon: Zita Blanc MD. no other qualified surgical assist was available therefore Dr. Recio assisted in the section. Procedure Type: low transverse fence setter #1: Joanne Recio Type of Anesthesia: Epidural Special Medications: none Drain: Robb to straight drain Estimated Blood Loss: 600 Fluids Replaced: crystalloid Findings Description of Procedure: 32yo presented for IOL at 40w1d recommended due to limited care with patient missing visits and refusing testing for diabetes after an abnormal 1 hour gct. Upon initial admission before any interventions patient had two spontaneous variable decelerations and had a category 2 tracing at 1 cm dilation. After IV fluid hydration moderate variability was present, robb bulb was placed and after a reactive NST was present with accelerations pitocin was started for a few minutes however then there was another prolonged deceleration and pitocin was shut off. patient continued to have intermittent variable decelerations even after robb bulb was removed. patient wasn't having regular contractions but continued to have intermittent severe variables with minimal to moderate varibility despite fluid bolus, position changes and was 4/70/-3 remote from delivery head not engaged in the pelvis, unable to rupture membranes, the decision was made to proceed with primary section. The patient was placed in the dorsal supine position with leftward tilt. Patient was prepped and draped in the normal sterile fashion. Pfannenstiel skin incision was made with the scalpel and carried through to the underlying layer of fascia with the scalpel. Fascia was nicked in the midline and the incision extended laterally. The rectus bellies were dissected off superiorly and inferiorly with out complication both sharply and bluntly. The peritoneum was entered digitally. The incision was stretched and a low transverse uterine incision was made with the scalpel. meconium and nuchal cord x 1 was noted at delivery. The infant's head was delivered atraumatically followed by the anterior and posterior shoulders without complication the rest of the infant delivered. The cord was clamped and cut and the was handed off to awaiting nurse. The placenta was delivered spontaneously immediately following and was noted to be intact, multiple calcifications, and have a three-vessel cord. The uterus was exteriorized cleared of all clots and debris, and the incision was closed in a double layer closure using #1 Monocryl. The ovaries and fallopian tubes were noted to be within normal limits. The uterus was returned to the maternal abdomen and gutters were cleared of all clots and debris. The peritoneum was closed with 3-0 Monocryl in a running fashion. Gloves were changed prior to fascial closure. Fascia was closed with 0 PDS in a running fashion. Subcutaneous tissue was copiously irrigated and the skin was closed with 3-0 Monocryl in a subcuticular fashion. Mepilex dressing was applied without complication. Patient was taken to recovery in stable condition. It was discussed with the patient that based on the clinical information obtained during this encounter, combined with her history, at this time I would recommend vaginal or for future deliveries if further pregnancies are desired. Amniotic Fluid Description: Moderate meconium Placental Delivery Description: Spontaneous Placenta Disposition: [facility] Cord Vessel Description: 3 Vessels Delayed Cord Clamping: Yes Complications Risks of Surgery Discussed w/Patient: Bleeding, Infection, Need for Future C- Sections and Injury to surrounding structure(s) including bowel and bladder Complications: none Admit VTE Documentation VTE Present on Admission: No VTE Mechan Device Prophylaxis: SCD's Procedures Urinary/Genital [id number]: 00251 Delivery [facility]
[2022-09-05] MEDS: Ibuprofen 600 MG Tablet PO (21:30)
--- NOTE | 2022-09-05 22:37 | NURSING ---
pt was nauseous at 1999 when this RN attempted to get pt up and out of bed. Pt requested to get up at later time.
[2022-09-06] MEDS: Ibuprofen 600 MG Tablet PO ×3 (03:19→16:52)
[2022-09-06 03:21] VITALS: BP 91/42; PULSE 70; RESP 14; O2SAT 97
[2022-09-06] MEDS: Acetaminophen 500 MG Tablet 1000 MG PO ×2 (04:55→12:54)
--- NOTE | 2022-09-06 06:25 | DCINST_ITS ---
Discharge Instructions Follow Up Care Test Results: Test results from this visit will be discussed in further detail at your follow- up appointment, if applicable. Discharge Plan Admission Admit Date/Time: 09/05/22 06:48 Attending Provider: Zita Blanc Primary Care Provider: Justin Mccoy Discharge Orders/Prescriptions Prescriptions: No Action meloxicam 7.5 mg tablet 7.5 mg PO DAILY PNV-[place] 28-1-300 mg capsule 1 cap PO DAILY (DME) blood-glucose meter Misc See Rx Instructions .MEDSUPPLY Qty: 1 0RF Rx Instructions: As directed- Test fasting and 2 hours after meals (DME) lancets Misc See Rx Instructions .MEDSUPPLY Qty: 100 4RF Rx Instructions: As directed (DME) Blood Glucose Test Strip See Rx Instructions .Route Qty: 50 6RF Rx Instructions: As directed- fasting and 2 hours post meals lamotrigine 200 mg tablet 200 mg PO DAILY sertraline 100 mg tablet 200 mg PO DAILY Referrals / Follow Up: Justin Mccoy MD [Primary Care Provider] -
--- NOTE | 2022-09-06 06:30 | PN.OBGYN_ITS ---
Subjective Subjective Patient doing well without complaints. Tolerating PO. Ambulating and voiding without difficulty. feeding well. Denies chest pain, shortness of breath, calf pain/swelling, fevers, chills, lightheadedness. patient refusing blood draws and injfections despite offers of anti anxiety medication, states she doesn't want any more children. Objective Data Objective Data Vital Signs: Vital Signs Temp Pulse Resp BP Pulse Ox O2 Del Method 97.2 F L 70 14 91/42 L 97 Room Air 09/05/22 20:15 09/06/22 03:21 09/06/22 03:21 09/06/22 03:21 09/06/22 03:21 09/06/22 03:21 Oxygen Delivery Method Room Air Weight: 209 lb 3.499 oz Body Mass Index (BMI) 38.2 Intake & Output: Intake and Output for Last 24 Hours 09/04/22 09/05/22 09/06/22 23:59 23:59 23:59 Intake Total 3447.10 / 3447.10 Output Total 1800 / 1800 300 / 300 Balance 1647.10 / 1647.10 -300 / -300 Lab / Micro Data Result Diagrams: 09/05/22 08:05 Labs: Laboratory Results - last 24 hr 09/05/22 08:05: WBC 15.8 H, RBC 4.39, Hgb 12.1, Hct 37.1, MCV 84.5, MCH 27.6, MC HC 32.6, RDW Std Deviation 41.1, RDW Coeff of Blade 13.3, Plt Count 292, MPV 10.6, Immature Gran % (Auto) 0.800, Neut % (Auto) 74.2 H, Lymph % (Auto) 15.5 L, [place] % (Auto) 8.2, Eos % (Auto) 1.0, Baso % (Auto) 0.3, Absolute Neuts (auto) 11.7 H, Absolute Lymphs (auto) 2.44, Nucleated RBC % 0 09/05/22 08:05: Blood Type A NEGATIVE, Antibody Screen NEGATIVE 09/05/22 08:05: Syphilis Total Ab Non-reactive 09/05/22 12:45: Urine Opiates Screen NEGATIVE, Urine Methadone Screen NEGATIVE, Ur Barbiturates Screen NEGATIVE, Ur Phencyclidine Scrn NEGATIVE, Ur Amphetamines Screen NEGATIVE, MDMA (Ecstasy) Screen NEGATIVE, U Benzodiazepines Scrn NEGATIVE, Urine Cocaine Screen NEGATIVE, U Cannabinoids Screen NEGATIVE, Ur Drug Screen Comment 09/05/22 15:40: Screen NEGATIVE, Baby's Blood Type A POSITIVE, Baby's ELY NEGATIVE ROS Constitutional Constitutional: Reports systems reviewed and no addt'l complaints, except as documented Cardiovascular Cardiovascular: Reports systems reviewed and no addt'l complaints, except as documented Respiratory/Chest Respiratory/Chest: Reports systems reviewed and no addt'l complaints, except as documented Gastrointestinal Gastrointestinal: Reports systems reviewed and no addt'l complaints, except as documented Physical Exam Const alert, oriented x3 and no apparent distress HEENT Head and Scalp: atraumatic Resp normal respiratory effort GI soft to palpation and non-tender Inspection: incision intact, healing well and drainage (none) Bimanual Exam - Vag & Uterus: uterus non-tender Uterus Palpation: uterus fundus firm (below Umbilicus) Assessment & Plan (1) delivery delivered: COMMENT: RLTCS 40 PLAN: Plan s/p LTCS PPD # 1 1. routine post care 2. breast feeding- support given 3. rh negative- needs rhogam, patient refusing despite risks discussed of future blood transfusion reactions, future anemia with loss or morbidity. patient refuses lovenox recommended and postop cbc. patient refusing anti anxiety medication to reduce stress with blood draw or administration of medication 4. rubella immune
[2022-09-06 07:53] VITALS: BP 119/68; PULSE 64; RESP 16; TEMP 36.1; O2SAT 100
[2022-09-06] MEDS: lamoTRIgine 100 MG Tablet 200 MG PO (09:49)
[2022-09-06] MEDS: Senna/Docusate Sodium 1 Tablet PO (09:49)
[2022-09-06] MEDS: Sertraline 100 MG Tablet 200 MG PO (09:49)
[2022-09-06 14:55] VITALS: BP 112/73; PULSE 85; RESP 16; TEMP 36.1; O2SAT 98
== END 2022-09-06 16:55 | disposition home or self-care (01) | DRG 787 ==
PROVIDERS: Admitting Provider Obstetrics & Gynecology; PCP Family Medicine; Referring Provider Obstetrics & Gynecology; Visit Provider Obstetrics & Gynecology
DX: O76 Abnormality in fetal heart rate and rhythm complicating labor and delivery (principal); F31.63 Bipolar disorder, current episode mixed, severe, without psychotic features; F10.21 Alcohol dependence, in remission; E55.9 Vitamin D deficiency, unspecified; F17.210 Nicotine dependence, cigarettes, uncomplicated; O99.814 Abnormal glucose complicating childbirth; O99.824 Streptococcus B carrier state complicating childbirth; Z37.0 Single live birth; O99.334 Smoking (tobacco) complicating childbirth; O99.344 Other mental disorders complicating childbirth; O99.284 Endocrine, nutritional and metabolic diseases complicating childbirth; O69.81X0 Labor and delivery complicated by cord around neck, without compression, not applicable or unspecified; O77.0 Labor and delivery complicated by meconium in amniotic fluid; O26.893 Other specified pregnancy related conditions, third trimester; O99.314 Alcohol use complicating childbirth; Y90.9 Presence of alcohol in blood, level not specified; Z67.11 Type A blood, Rh negative; Z3A.40 40 weeks gestation of pregnancy; Z79.899 Other long term (current) drug therapy; Z63.4 Disappearance and death of family member; Z91.51 Personal history of suicidal behavior
CPT/HCPCS: 59025; 59050; 80307; 85025; 85461; 86780; 86850; 86900; 86901; 88307; 99221; J7120; G0378; J2405